=== PATIENT | male | born 1955 | race Caucasian/White ===

== ENCOUNTER 2017-12-06 05:50 | Day surgery (SDC) | payer MEDICARE, BC ==
[2017-12-06] MEDS ORDERED: DIPRIVAN 200 MG/20 ML IV ONE (05:51)
[2017-12-06] MEDS ORDERED: Lactated Ringers 1,000 ML IV SCH (07:00)
[2017-12-06 07:53] VITALS: O2SAT 98
[2017-12-06 08:26] VITALS: BP 128/73; PULSE 54
--- NOTE | 2017-12-06 10:36 | OP ---
SURGERY DATE/TIME: 12/06/2017 0700 PREOPERATIVE DIAGNOSIS: Screening exam. POSTOPERATIVE DIAGNOSIS: Normal colon. PROCEDURE: Colonoscopy. SURGEON: Dr. Aguilar. ANESTHESIA: MAC. Medications given by anesthesia department. HISTORY: The patient is a 62 year-old white male patient presenting now for second colonoscopy. His last was over ten years ago. The patient was appraised of the risks of the procedure including the risk of perforation, phlebitis, untoward reaction to medication, bleeding and missed lesions. The patient verbalized his understanding and desired to have the procedure performed. DESCRIPTION OF PROCEDURE: The patient was given the medications by the anesthesia department. He had continuous pulse oximetry, ECG monitoring, intermittent blood pressure monitoring and tidal CO2 monitoring during the examination. He was placed in the left lateral decubitus position. A digital rectal examination was performed and revealed normal anal sphincter tone, no masses and normal prostate. The flexible Olympus pediatric colonoscope was used to intubate the rectum. A view of the colon was developed sequentially to the cecum. Upon insertion and withdrawal, including a retroflex view in the rectum, no mucosal lesions were encountered. The scope was removed from the patient who tolerated the procedure well and was sent back to OP recovery in good condition. The prep was noted to be fair to good.
== END 2017-12-06 08:25 | disposition home or self-care (01) ==
LOC: SDC 05:50
PROVIDERS: ATTEND Family Medicine
DX: Z12.11 Encounter for screening for malignant neoplasm of colon (principal); I10 Essential (primary) hypertension
CPT/HCPCS: 94250; G0121; J2704

== ENCOUNTER 2018-06-24 22:55 | Emergency (ER) | payer MEDICARE ==
[2018-06-24 23:18] VITALS: BP 152/88
[2018-06-25 00:25] VITALS: O2SAT 98
[2018-06-25] MEDS ORDERED: NORCO 5/325 MG ONE (00:28)
[2018-06-25] MEDS ORDERED: Augmentin 875-125 Tablet ONE (00:28)
--- NOTE | 2018-06-25 00:37 | ERPHSYRPT ---
- History of Present Illness Time Seen by Provider: 06/24/18 23:20 Source: patient Exam Limitations: clinical condition Patient Subjective Stated Complaint: pt is alert and oriented. pt is ambulatory with a steady gait. pt comes in after being bitten on the right hand by a dog. pt has 6cm x 3cm laceration to his right hand. laceration is from below his ring finger knuckle up his ring finger. pt has white tissue exposed. pt is mildly actively bleeding. radial pulse is present. cap refil <3. Triage Nursing Assessment: see above Physician History: PATIENT WITH A HISTORY OF HYPERTENSION, WHILE PULLING A STICK FROM HIS FRIENDS MOUTH THE DOG BIT HIS RIGHT HAND. STATES DOGS, IMMUNIZATIONS ARE CURRENT. DENIES NUMBNESS OR TINGLING IN DIGITS. Occurred: just prior to arrival Method of Injury: other (DOG BITE) Quality: constant Severity of Pain-Max: mild Severity of Pain-Current: mild Extremities Pain Location: hand: right, 4th finger: right Modifying Factors: Improves With: movement Associated Symptoms: none Allergies/Adverse Reactions: No Known Drug Allergies Allergy (Verified 12/06/17 06:21) Home Medications: Benazepril HCl 5 mg PO DAILY 11/07/17 [History] Metoprolol Tartrate 25 mg [Lopressor 25MG Tab] 25 mg PO DAILY 06/24/18 [ History] Hx Tetanus, Diphtheria Vaccination/Date Given: Yes (less than 10) Hx Influenza Vaccination/Date Given: No Hx Pneumococcal Vaccination/Date Given: No - Review of Systems Constitutional: No Symptoms Musculoskeletal: Injury, Other (LACERATION RIGHT HAND AND RING FINGER) Neurological: No Symptoms - Past Medical History Pertinent Past Medical History: Yes Neurological History: No Pertinent History ENT History: No Pertinent History Cardiac History: Hypertension Respiratory History: No Pertinent History Endocrine Medical History: No Pertinent History Musculoskeletal History: Other GI Medical History: No Pertinent History History: No Pertinent History Psycho-Social History: Depression Male Reproductive Disorders: No Pertinent History Other Medical History: ablation to nerves in back - Past Surgical History Past Surgical History: Yes Neuro Surgical History: No Pertinent History Cardiac: No Pertinent History Respiratory: No Pertinent History Gastrointestinal: No Pertinent History Genitourinary: No Pertinent History Musculoskeletal: Orthopedic Surgery Male Surgical History: No Pertinent History Other Surgical History: STEROID INJECTIONS. left knee scope - Social History Smoking Status: Never smoker Exposure to second hand smoke: No Drug Use: none Patient Lives Alone: No - Nursing Vital Signs Nursing Vital Signs: Initial Vital Signs Pulse Rate 76 06/24/18 23:05 Respiratory Rate 16 06/24/18 23:05 Blood Pressure 152/88 06/24/18 23:05 O2 Sat by Pulse Oximetry 97 06/24/18 23:05 Pain Scale Pain Intensity 5 - Physical Exam General Appearance: no apparent distress Hand Exam: laceration (THERE IS A 6CM LACERATION EXTENDING RIGHT HAND DORSUM DISTAL RADIAL ASPECT 3RD METACARPAL TO PROXIMAL PHALANGX OF RING FINGER RADIAL ASPECT, FULL RANGE OF MOTION ALL DIGITS, SENSORY INTACT TO LIGHT TOUGH AND PINPRICK) Mental Status Exam: alert, oriented x 3 Skin Exam: normal color SpO2 Interpretation: normal SpO2: 98 Procedures - Laceration/Wound Repair Right Hand Wound Location: Right, hand Wound Length (cm): 6 Wound's Depth, Shape: linear Wound Explored: clean Irrigated: Yes Hibiclens Prep: Yes Anesthesia: local Volume Anesthetic (ccs): 8 Wound Repaired With: sutures Suture Size/Type: 4-0 Number of Sutures: 14 Layer Closure?: No Sterile Dressing Applied?: Yes Splint Applied?: Yes Type of Splint Applied: ALUMINUM FOAM FINGER Sling Applied?: No Ordered Tests: Medication Summary Discontinued Medications Generic Name Dose Route Start Last Admin Trade Name Judson PRN Reason Stop Dose Admin Hydrocodone Bitart/Acetaminophen Confirm 06/25/18 00:28 [place] 5/325 Mg Administered 06/25/18 00:29 Dose 2 tab .ROUTE .STK-MED ONE Amoxicillin/Clavulanate Potassium Confirm 06/25/18 00:28 Augmentin 875-125 Tablet Administered 06/25/18 00:29 Dose 875 mg .ROUTE .STK-MED ONE - Progress Progress: improved Progress Note: 06/25/18 00:39 ADMINISTERED AUGMENTIN 875MG AND NORCO 10/325 ORALLY Counseled pt/family regarding: diagnosis, need for follow-up - Departure Departure Disposition: Home Clinical Impression: LACERATION RIGHT HAND/RING FINGER Condition: Stable Critical Care Time: No Referrals: WALTER MALONE [Primary Care Provider] - Additional Instructions: REMOVE DRESSING AND SPLINT TODAY AT NOON, THEN CLEANSE WOUND WITH SOAP AND WATER AND REAPPLY SPLINT AND DRESSING. ANTIBIOTIC AUGMENTIN 875MG TWICE DAILY FOR 10 DAYS. NORCO 5/325 EVERY 6 HOURS FOR PAIN NEEDED, WATCH FOR SIGNS OF INFECTION, REDNESS, SWELLING OR DRAIANGE. HAVE STITCHES REMOVED AT 12 DAYS. Prescriptions: Hydrocodone/APAP 5-325 Tab^^^ [[place] 5-325 Tablet^^^] 1 tab PO Q6HPRN PRN #10 tablet MDD 6 PRN Reason: Pain Amox Tr/Potass Clav. 875 mg [Augmentin 875-125 Tablet] 1 each PO BID #20 tablet
[2018-06-25] MEDS ORDERED: Norco 10/325 MG Tablet ONE (00:41)
[2018-06-25 00:48] VITALS: PULSE 70
[2018-06-25] MEDS ORDERED: Norco 10/325 MG Tablet PO ONE (01:06)
[2018-06-25] MEDS ORDERED: Augmentin 875-125 Tablet PO ONE (01:06)
[2018-06-25] MEDS ORDERED: XYLOCAINE 2% HCL 20 ML MDV IJ ONE (01:07)
[2018-06-25] MEDS ORDERED: NORCO 5/325 MG PO ONE (01:07)
== END 2018-06-25 00:55 | disposition home or self-care (01) ==
LOC: ED 22:55
DX: S61.214A Laceration without foreign body of right ring finger without damage to nail, initial encounter (principal); W54.0XXA Bitten by dog, initial encounter
CPT/HCPCS: 12004; 96372; 99284; A9270-GY

== ENCOUNTER 2022-05-17 18:44 | Emergency (ER) | payer MEDICARE ==
[2022-05-17] MEDS ORDERED: BABY ASPIRIN 81 MG CHEW PO ONE ×2 (19:01→19:22)
[2022-05-17] MEDS ORDERED: Nitrostat 0.4 MG (ED) SL ONE (19:01)
[2022-05-17 19:15] LABS: Absolute Neutrophil Ct (ANC) 3.83 x10^3/uL (1.4-6.9); BASOPHIL % 0.4 % (0.0-0.4); Basophil (Absolute #) 0.02 x10^3/uL (0-0.4); Eosinophil % 0.8 % (0.00-5.0); Eosinophil (Absolute #) 0.04 x10^3/uL (0-0.5); Hematocrit 49.9 % (42-50); Hemoglobin 16.2 g/dL (12.5-18.0); IMMATURE GRAN # 0.01 x10^3u/L (0.00-0.03); IMMATURE GRAN % 0.2 % (0.00-0.4); Lymphocytes % 18.9 % (24.0-44.0); Mean Cell Volume 97.5 fL (78-100); Mean Corpuscular Hemoglobin 31.6 pg (26-32); Mean Corpuscular Hgb Concent. 32.5 g/dL (32-36); Mean Platelet Volume 10.8 fL (7.5-11.0); Monocyte (Absolute #) 0.39 x10^3/uL (0.0-1.3); Monocytes % 7.4 % (0.0-12.0); Neutrophil % 72.3 % (36.0-66.0); Platelet Count 287 x10^3/uL (150-450); Red Blood Count 5.12 x10^6/uL (4.1-5.6); Red Cell Distribution Width 12.3 % (11.5-14.0); White Blood Count 5.3 x10^3/uL (4.0-10.5)
[2022-05-17] MEDS ORDERED: Sodium Chloride 0.9% 1000 ML 1,000 ML IV SCH (19:15)
[2022-05-17] MEDS ORDERED: Sodium Chloride 0.9% 1000 ML 1,000 ML ONE (19:23)
--- NOTE | 2022-05-17 19:26 | XRAY ---
Indication: Chest pain. Comparison: August 15, 2018 Portable chest unchanged again demonstrating normal heart and lungs with incidental left lung calcified granuloma. Bony thorax intact again with minimal degenerative changes. No new/acute findings.
[2022-05-17 19:33] LABS: ALBUMIN 4.7 g/dL (3.5-5.0); ANION GAP 12.6 MEQ/L (5-15); BILIRUBIN,TOTAL 0.7 mg/dL (0.2-1.3); Creatinine 1 1.45 mg/dL (0.66-1.25); EST GLOMERULAR FILTRATION RATE 51.6 ML/MIN; Potassium 4.2 mmol/L (3.5-5.1); Total Protein 7.8 g/dL (6.3-8.2)
--- NOTE | 2022-05-17 19:44 | ERPHSYRPT ---
- History of Present Illness Time Seen by Provider: 05/17/22 19:42 Historian: patient, family Exam Limitations: no limitations Patient Subjective Stated Complaint: chest pain Triage Nursing Assessment: pt to ED c/o CP that has been persistant all day. pt states "it feels like its throbbing like a bruise." pain does not radiate and no other assocaited symptoms. rates 5/10. heart sounds clear, lung sounds clear and equal bilaterally. denies cardiac hx, however does have HTN. denies SOB. reports that occasionally pain increases momentarily while he exhales. Physician History: pt to ED c/o CP that has been persistant all day. pt states "it feels like its throbbing like a bruise." pain does not radiate and no other assocaited symptoms reports that occasionally pain increases momentarily while he exhales. Timing/Duration: today Activities at Onset: none Quality: aching Location: substernal Chest Pain Radiation: no radiation Severity of Pain-Max: mild Severity of Pain-Current: mild Modifying Factors: Improves With: nothing Associated Symptoms: denies symptoms Prior Chest Pain/Cardiac Workup: no prior chest pain Aspirin Treatment Today: 81 mg x 3 Allergies/Adverse Reactions: No Known Drug Allergies Allergy (Verified 05/17/22 18:46) Home Medications: Clonidine HCl 0.1 mg [Clonidine 0.1 mg Tablet] 0.1 mg PO DAILY 05/17/22 [History] Hx Tetanus, Diphtheria Vaccination/Date Given: Yes (less than 10) Hx Influenza Vaccination/Date Given: No Hx Pneumococcal Vaccination/Date Given: No Immunizations Up to Date: No Travel Risk - International Travel Have you traveled outside of the country in past 3 weeks: No - Coronavirus Screening Are you exhibiting any of the following symptoms?: No Close contact with a COVID-19 positive Pt in past 14-21 Days: No - Vaccine Status Have you recieved a Covid-19 vaccination: No - Review of Systems Constitutional: No Fever, No Chills Eyes: No Symptoms Ears, Nose, & Throat: No Symptoms Respiratory: No Cough, No Dyspnea, No Wheezing Cardiac: Chest Pain, No Edema, No Syncope Abdominal/Gastrointestinal: No Abdominal Pain, No Nausea, No Vomiting, No Diarrhea Genitourinary Symptoms: No Dysuria Musculoskeletal: No Back Pain, No Neck Pain Skin: No Rash Neurological: No Dizziness, No Focal Weakness, No Sensory Changes Psychological: No Symptoms Endocrine: No Symptoms All Other Systems: Reviewed and Negative - Past Medical History Pertinent Past Medical History: Yes Neurological History: No Pertinent History ENT History: No Pertinent History Cardiac History: Hypertension Respiratory History: No Pertinent History Endocrine Medical History: No Pertinent History Musculoskeletal History: Other GI Medical History: No Pertinent History History: No Pertinent History Psycho-Social History: Depression Male Reproductive Disorders: No Pertinent History Other Medical History: ablation to nerves in back - Past Surgical History Past Surgical History: Yes Neuro Surgical History: No Pertinent History Cardiac: No Pertinent History Respiratory: No Pertinent History Gastrointestinal: No Pertinent History Genitourinary: No Pertinent History Musculoskeletal: Orthopedic Surgery Male Surgical History: No Pertinent History Other Surgical History: STEROID INJECTIONS. left knee scope - Social History Smoking Status: Never smoker Exposure to second hand smoke: No Drug Use: none Patient Lives Alone: No - Nursing Vital Signs Nursing Vital Signs: Initial Vital Signs Pulse Rate 60 05/17/22 18:48 Pain Scale Pain Intensity 5 - Physical Exam General Appearance: no apparent distress, alert Eye Exam: PERRL/EOMI, eyes nml inspection Ears, Nose, Throat Exam: normal ENT inspection, moist mucous membranes Neck Exam: normal inspection, non-tender, supple, full range of motion Respiratory Exam: normal breath sounds, lungs clear, No respiratory distress Cardiovascular Exam: regular rate/rhythm, normal heart sounds Gastrointestinal/Abdomen Exam: soft, No tenderness, No mass Back Exam: normal inspection, No CVA tenderness, No vertebral tenderness Extremity Exam: normal inspection, normal range of motion Neurologic Exam: alert, oriented x 3, cooperative, normal mood/affect, sensation nml, No motor deficits Skin Exam: normal color, warm, dry - Course Nursing assessment & vital signs reviewed: Yes EKG Interpreted by Me: Sinus Rhythm, Non-specific ST Changes Rhythm Strip: Normal Sinus Rhythm - Radiology Exams Chest X-ray Interpretation: Reviewed by me, Negative Ordered Tests: Active Orders 24 hr Category Date Time Status EKG-ER Only STAT Care 05/17/22 19:01 Active Oxygen-ED Only Nasal Cannula 2 lpm Care 05/17/22 19:01 Active CHEST 1 VIEW (PORTABLE) Stat Exams 05/17/22 19:01 Completed CBC W DIFF Stat Lab 05/17/22 19:12 Completed CMP Stat Lab 05/17/22 19:12 Completed TROPONIN Q4H Lab 05/17/22 19:12 Completed TROPONIN Q4H Lab 05/17/22 23:15 Ordered TROPONIN Q4H Lab 05/18/22 03:15 Ordered Medication Summary Generic Name Dose Route Start Last Admin Trade Name Judson PRN Reason Stop Dose Admin Sodium Chloride 1,000 mls @ 100 mls/hr 05/17/22 19:15 05/17/22 19:27 Sodium Chloride 0.9% 1000 Ml IV 06/16/22 19:14 100 mls/hr .Q10H ADAIR Administration Discontinued Medications Generic Name Dose Route Start Last Admin Trade Name Judson PRN Reason Stop Dose Admin Aspirin 81 mg 05/17/22 19:01 05/17/22 19:27 Aspirin 81 Mg Tab.Chew PO 05/17/22 19:02 81 mg STAT ONE Administration Aspirin 243 mg 05/17/22 19:22 05/17/22 19:28 Aspirin 81 Mg Tab.Chew PO 05/17/22 19:23 243 mg STAT ONE Administration Nitroglycerin 0.4 mg 05/17/22 19:01 05/17/22 19:26 Nitroglycerin 0.4 Mg (Ed) 0.4 Mg Tab.Subl SL 05/17/22 19:02 0.4 mg STAT ONE Administration Lab/Rad Data: Laboratory Result Diagrams 05/17/22 19:12 05/17/22 19:12 Laboratory Results 05/17/22 05/17/22 05/17/22 Range/Units 19:12 19:12 19:12 WBC 5.3 (4.0-10.5) x10^3/uL RBC 5.12 (4.1-5.6) x10^6/uL Hgb 16.2 (12.5-18.0) g/dL Hct 49.9 (42-50) % MCV 97.5 (78-100) fL MCH 31.6 (26-32) pg MCHC 32.5 (32-36) g/dL RDW 12.3 (11.5-14.0) % Plt Count 287 (150-450) x10^3/uL MPV 10.8 (7.5-11.0) fL Gran % 72.3 H (36.0-66.0) % Immature Gran % (Auto) 0.2 (0.00-0.4) % Nucleat RBC Rel Count 0.0 (0.00-0.1) % Eos # (Auto) 0.04 (0-0.5) x10^3/uL Immature Gran # (Auto) 0.01 (0.00-0.03) x10^3u/L Absolute Lymphs (auto) 1.00 (1.0-4.6) x10^3/uL Absolute Monos (auto) 0.39 (0.0-1.3) x10^3/uL Absolute Nucleated RBC 0.00 (0.00-0.01) x10^3u/L Lymphocytes % 18.9 L (24.0-44.0) % Monocytes % 7.4 (0.0-12.0) % Eosinophils % 0.8 (0.00-5.0) % Basophils % 0.4 (0.0-0.4) % Absolute Granulocytes 3.83 (1.4-6.9) x10^3/uL Basophils # 0.02 (0-0.4) x10^3/uL Sodium 139 (137-145) mmol/L Potassium 4.2 (3.5-5.1) mmol/L Chloride 103 (98-107) mmol/L Carbon Dioxide 27 (22-30) mmol/L Anion Gap 12.6 (5-15) MEQ/L BUN 21 H (9-20) mg/dL Creatinine 1.45 H (0.66-1.25) mg/dL Estimated GFR 51.6 ML/MIN Glucose 91 (74-106) mg/dL Calcium 9.0 (8.4-10.2) mg/dL Total Bilirubin 0.70 (0.2-1.3) mg/dL AST 30 (17-59) U/L ALT 23 (0-50) U/L Alkaline Phosphatase 51 (38-126) U/L Troponin I < 0.012 (0.000-0.034) ng/mL Serum Total Protein 7.8 (6.3-8.2) g/dL Albumin 4.7 (3.5-5.0) g/dL - Progress Progress: improved Air Movement: good Progress Note: 05/17/22 19:50 During ER course patient did not have any chest pain. Patient did got 4 aspirin and 1 nitro and which did relieve his pain. Patient blood pressure was running high but he is supposed to take his another clonidine dose tonight so he is advised to take it once he goes home. He and his Were informed about the labs. Patient chest x-ray showing COPD changes. Patient did work in the [employer] for 30 some years. Patient and his were advised to follow-up with Dr. Aguilar and required further testing including stress test for heart. Patient is also advised to take clonidine 0.1 mg twice a day on regular basis. Patient verbalized all instruction and will follow-up with his primary care physician for further testing. Blood Culture(s) Obtained: No Antibiotics given: No Counseled pt/family regarding: lab results, diagnosis, need for follow-up, rad results Medical Desision Making - Independent Historian Additional History obtained from: Spouse - Discussion of managment Reviewed:: Test results, Need for additional workup Agreed on:: Treatment plan, need for follow-up - Diagnostic Testing Diagnostic test were ordered, analyzed, and reviewed by me: Yes Radiological Interpretation: Interpreted by me, Reviewed by me - Risk of complications The pt has a mod risk of morbidity or mortality based on: Need for prescription drug management - Departure Departure Disposition: Home Clinical Impression: Chest pain in adult, Acute renal disease COPD (chronic obstructive pulmonary disease) Qualifiers: COPD type: unspecified COPD Qualified Code(s): J44.9 - Chronic obstructive pulmonary disease, unspecified Hypertension Qualifiers: Hypertension type: primary hypertension Qualified Code(s): I10 - Essential (primary) hypertension Condition: Stable Critical Care Time: Yes Critical Care Time(excluding separately billable procedures): Critical 30-74 mins Referrals: WALTER AGUILAR [Primary Care Provider] - Follow up/PCP as directed Instructions: Chronic Obstructive Pulmonary Disease, Chest Pain (DC) Additional Instructions: Patient and his were informed about blood test to rule out heart attack as well as other lung and heart related causes for chest pain. Patient is informed that patient 1 test which suggests mild kidney dysfunction is high but for that they need to follow-up with the primary care physician and further testing is necessary as well as further testing is also necessary for heart to consider stress test with your primary care physician. Discharge/Care Plan CARROL MERRILL was seen on 05/17/22 in the Emergency Room. The patient was counseled regarding Diagnosis,Lab results, Imaging studies, need for follow up and when to return to the Emergency Room. Prescriptions given: Discharge Note I have spoken with the patient and/or caregivers. I have explained the patient's condition, diagnosis and treatment plan based on the information available to me at this time. I have answered the patient's and/or caregiver's questions and addressed any concerns. The patient and/or caregivers have as good understanding of the patient's diagnosis, condition and treatment plan as can be expected at this point. The vital signs have been stable. The patient's condition is stable and appropriate for discharge from the emergency department. The patient will pursue further outpatient evaluation with the primary care physician or other designated or consulting physician as outlined in the discharge instructions. The patient and/or caregivers are agreeable to this plan of care and follow-up instructions have been explained in detail. The patient and/or caregivers have received these instruction. The patient/and or caregivers are aware that any significant change in condition or worsening of symptoms should prompt an immediate return to this or the closest emergency department or call 911. GARFIELDCARROL ESCOBAR was seen on 05/17/22 n the Emergency Room. At that time you were treated for an emergent condition, during your visit Laboratory, Radiology and/or other procedures may have been ordered. It is very important that you follow-up with your Primary Care Physician WALTER AGUILAR within the next 24-48 hours to review your Emergency Room visit and the final results of testing that was ordered. Some test results such as Urine Cultures, Blood Cultures, and other cultures if ordered will not be finalized for 24-48 hours. If you do not have a Primary Care Provider please call the medical records department at [phone] ext [phone] to obtain a copy of your results or you may sign into our patient portal to obtain these results by visiting us @ [email or web address] and completing the following steps: 1. Click on the Patient Portal link 2. Click the Patient Self Enrollment Link to complete the enrollment form and entering your 3. Once the enrollment form is completed you will receive an email with a temporary ID and password at the email address you provided. 4. Next choose a user name and password. Your user name must be at least 4 characters long and your password must be at least 4 characters long. 5. Choose a security question from the list and provide your answer to the question. If you already have signed into the Health Portal you may access your Health Care Information 28/09 by the following steps: 1. Login to our website @ [email or web address] 2. Enter your original user name and password. FAQS The [facility] Health Portal is an online tool that contains your Lab Results, Radiology Reports, Visit History, Discharge Instructions and Health Summary Lab and Radiology Results will not be available for 72 hours on the portal. The Portal is a secure site, passwords are encryted and URLs are re-written so they cannot be copied and pasted. You and authorized family members are the only ones who can access your Portal. Also there is a timeout feature that protects your information if you leave the Portal page open. If you have technical difficulty please use the Contact Us link on the page this will allow you to submit any questions you have regarding the Portal or you may contact the Medical Record Department at [phone] ext [phone]. Prescriptions: Nitroglycerin 0.4 mg SL Q5MIN PRN MR X 3 PRN #30 tablet PRN Reason: Chest Pain
[2022-05-17 20:09] VITALS: BP 165/89; PULSE 62; O2SAT 99
== END 2022-05-17 20:23 | disposition home or self-care (01) ==
LOC: ED 18:44
DX: J44.9 Chronic obstructive pulmonary disease, unspecified (principal); I10 Essential (primary) hypertension; N28.9 Disorder of kidney and ureter, unspecified; R07.9 Chest pain, unspecified; Z79.899 Other long term (current) drug therapy; Z28.310 Unvaccinated for COVID-19
CPT/HCPCS: 36000; 36415; 71045; 80053; 84484; 85025; 93005; 99284; 99291; A9270-GY

== ENCOUNTER 2023-03-08 09:09 | Emergency (ER) | payer MEDICARE ==
[2023-03-08] MEDS ORDERED: MORPHINE SULFATE 4 MG INJ ONE (09:20)
--- NOTE | 2023-03-08 09:22 | ERPHSYRPT ---
- History of Present Illness Time Seen by Provider: 03/08/23 09:12 Historian: patient Exam Limitations: no limitations Physician History: Pt states for the past 2 hours he has had severe mid chest pain and vomited x1 without blood. Last BM was yesterday & wnl. Pt denies fever & abdominal pain. Aspirin Treatment Today: 81 mg x 4, provided by ED Allergies/Adverse Reactions: No Known Drug Allergies Allergy (Verified 03/08/23 09:26) Home Medications: Clonidine HCl 0.1 mg [Clonidine 0.1 mg Tablet] 0.2 mg PO HS 05/17/22 [History] Atorvastatin Calcium 20 mg PO HS 12/06/22 [History] Hx Tetanus, Diphtheria Vaccination/Date Given: Yes (less than 10) Hx Influenza Vaccination/Date Given: No Hx Pneumococcal Vaccination/Date Given: No Travel Risk - Vaccine Status Have you recieved a Covid-19 vaccination: No - Review of Systems Constitutional: No Fever Cardiac: Chest Pain Abdominal/Gastrointestinal: Vomiting, No Diarrhea Neurological: No Headache - Past Medical History Pertinent Past Medical History: Yes Neurological History: No Pertinent History ENT History: No Pertinent History Cardiac History: Hypertension Respiratory History: No Pertinent History Endocrine Medical History: No Pertinent History Musculoskeletal History: Other GI Medical History: No Pertinent History History: No Pertinent History Psycho-Social History: Depression Male Reproductive Disorders: No Pertinent History Other Medical History: ablation to nerves in back - Past Surgical History Past Surgical History: Yes Neuro Surgical History: No Pertinent History Cardiac: No Pertinent History Respiratory: No Pertinent History Gastrointestinal: No Pertinent History Genitourinary: No Pertinent History Musculoskeletal: Orthopedic Surgery Male Surgical History: No Pertinent History Other Surgical History: STEROID INJECTIONS. left knee scope - Social History Smoking Status: Never smoker Exposure to second hand smoke: No Drug Use: none Patient Lives Alone: No - Nursing Vital Signs Nursing Vital Signs: Initial Vital Signs Temperature 97.8 F 03/08/23 09:16 Pulse Rate 56 L 03/08/23 09:16 Blood Pressure 190/94 03/08/23 09:16 O2 Sat by Pulse Oximetry 98 03/08/23 09:16 Pain Scale Pain Intensity 10 - Physical Exam General Appearance: alert Eye Exam: PERRL/EOMI Ears, Nose, Throat Exam: TMs normal, pharynx normal Neck Exam: normal inspection Respiratory Exam: normal breath sounds Cardiovascular Exam: normal heart sounds Gastrointestinal/Abdomen Exam: soft, normal bowel sounds Extremity Exam: No swelling Neurologic Exam: alert, cooperative - Course EKG Interpreted by Me: RATE (63), NORMAL AXIS, ST Elev (II, III & aVF) Ordered Tests: Active Orders 24 hr Category Date Time Status Oyster Grader STAT Care 03/08/23 09:18 Ordered EKG-ER Only STAT Care 03/08/23 09:17 Ordered IV Insertion STAT Care 03/08/23 09:17 Ordered Oxygen-ED Only Nasal Cannula 2 lpm Care 03/08/23 09:17 Ordered CHEST 1 VIEW (PORTABLE) Stat Exams 03/08/23 09:18 Ordered AMYLASE Stat Lab 03/08/23 09:17 Ordered CBC W DIFF Stat Lab 03/08/23 09:17 Ordered CMP Stat Lab 03/08/23 09:17 Ordered LIPASE Stat Lab 03/08/23 09:17 Ordered MAGNESIUM Stat Lab 03/08/23 09:17 Ordered PROTIME WITH INR Stat Lab 03/08/23 09:17 Ordered PTT Stat Lab 03/08/23 09:17 Ordered TROPONIN Q4H Lab 03/08/23 09:30 Ordered TROPONIN Q4H Lab 03/08/23 13:30 Ordered TROPONIN Q4H Lab 03/08/23 17:30 Ordered Medication Summary Generic Name Dose Route Start Last Admin Trade Name Freq PRN Reason Stop Dose Admin Sodium Chloride 1,000 mls @ 999 mls/hr 03/08/23 09:17 Sodium Chloride 0.9% 1000 Ml IV 03/08/23 10:17 .Q1H1M STA Discontinued Medications Generic Name Dose Route Start Last Admin Trade Name Freq PRN Reason Stop Dose Admin Aspirin 324 mg 03/08/23 09:17 Aspirin 81 Mg Tab.Chew PO 03/08/23 09:18 STAT ONE Morphine Sulfate Confirm 03/08/23 09:20 Morphine Sulfate 4 Mg/Ml Injection Administered 03/08/23 09:21 Dose 4 mg .ROUTE .STK-MED ONE - Progress Progress: unchanged - Departure Departure Disposition: Transfer ([facility]) Clinical Impression: Acute inferior myocardial infarction Condition: Stable Critical Care Time: No Referrals: WALTER MALONE [Primary Care Provider] - Follow up/PCP as directed
[2023-03-08 09:25] VITALS: BP 190/94; PULSE 56; TEMP 97.8; O2SAT 98
[2023-03-08] MEDS ORDERED: Sodium Chloride 0.9% 1000 ML 1,000 ML ONE (09:29)
[2023-03-08 09:31] LABS: Absolute Neutrophil Ct (ANC) 9.23 x10^3/uL (1.4-6.9); BASOPHIL % 0.2 % (0.0-0.4); Basophil (Absolute #) 0.02 x10^3/uL (0-0.4); Eosinophil % 0.2 % (0.00-5.0); Eosinophil (Absolute #) 0.02 x10^3/uL (0-0.5); Hematocrit 48.2 % (42-50); Hemoglobin 15.9 g/dL (12.5-18.0); IMMATURE GRAN # 0.03 x10^3u/L (0.00-0.03); IMMATURE GRAN % 0.3 % (0.00-0.4); Lymphocyte (Absolute #) 0.71 x10^3/uL (1.0-4.6); Lymphocytes % 6.8 % (24.0-44.0); Mean Corpuscular Hemoglobin 32.3 pg (26-32); Mean Platelet Volume 10.9 fL (7.5-11.0); Monocytes % 3.8 % (0.0-12.0); Neutrophil % 88.7 % (36.0-66.0); Platelet Count 338 x10^3/uL (150-450); Red Blood Count 4.92 x10^6/uL (4.1-5.6); Red Cell Distribution Width 12.4 % (11.5-14.0); White Blood Count 10.4 x10^3/uL (4.0-10.5)
[2023-03-08] MEDS: Sodium Chloride 0.9% 1000 ML 1,000 ML IV STA (09:32)
[2023-03-08] MEDS: BABY ASPIRIN 81 MG CHEW PO ONE (09:33)
[2023-03-08 09:45] LABS: BILIRUBIN,TOTAL 0.7 mg/dL (0.2-1.3); Calcium 9.6 mg/dL (8.4-10.2); Creatinine 1 1.29 mg/dL (0.66-1.25); EST GLOMERULAR FILTRATION RATE 60.4 ML/MIN; MAGNESIUM 1.9 mg/dL (1.6-2.3); Total Protein 7.8 g/dL (6.3-8.2)
[2023-03-08 09:46] LABS: INR 0.97 (0.8-3.0); PROTIME 10.6 SECONDS (9.4-12.5); PTT 24.8 SECONDS (25.1-36.5)
[2023-03-08 09:47] LABS: Potassium 4.5 mmol/L (3.5-5.1)
[2023-03-08 09:50] LABS: ANION GAP 16.5 MEQ/L (5-15)
--- NOTE | 2023-03-08 18:50 | XRAY ---
Indication: Chest pain. Myocardial infarct. Comparison: December 06, 2022 Portable chest remains clear again with incidental left lung calcified granuloma and mild left hemidiaphragm elevation. Heart not enlarged. Bony thorax intact again with osteopenia, degenerative changes, and cervical fusion hardware. Impression: Continued nonacute chest with chronic features.
== END 2023-03-08 09:37 | disposition short-term general hospital (02) ==
LOC: ED 09:09
DX: I21.19 ST elevation (STEMI) myocardial infarction involving other coronary artery of inferior wall (principal); R07.9 Chest pain, unspecified; R11.10 Vomiting, unspecified; I10 Essential (primary) hypertension; Z79.899 Other long term (current) drug therapy; Z28.310 Unvaccinated for COVID-19
CPT/HCPCS: 36000; 36415; 71045; 80053; 82150; 83690; 83735; 84484; 85025; 85610; 85730; 93005; 93041; 99285; J2270; A9270-GY